=== PATIENT | female | born 1945 | race Caucasian/White ===

== ENCOUNTER → 2018-03-29 | Day surgery (SDC) | payer MEDICARE ==
[~2018-03-29] VITALS: Ht 175.2 cm; Wt 73.9 kg
[~2018-03-29] MED LIST: AMLODIPINE BESYL5 MG PO; ATORVASTATIN CA40 M1 PO; BENICAR40 MG PO; FLECAINIDE ACE100 M1 PO; HYDROCHLOROTHIA25 M1 PO; METOPROLOL SUCC50 M1 PO; VALSARTAN160 MG PO
[2018-03-29 07:20] VITALS: BP 123/68
[2018-03-29 09:23] VITALS: BP 143/63
[2018-03-29 09:32] VITALS: BP 127/67
[2018-03-29 09:51] VITALS: BP 131/78
== END | disposition home or self-care (01) ==
LOC: SDC 03-25 08:45
DX: L57.0 Actinic keratosis (principal); L98.499 Non-pressure chronic ulcer of skin of other sites with unspecified severity; L90.5 Scar conditions and fibrosis of skin; C44.612 Basal cell carcinoma of skin of right upper limb, including shoulder; I10 Essential (primary) hypertension; I48.91 Unspecified atrial fibrillation; Z98.890 Other specified postprocedural states; Z79.899 Other long term (current) drug therapy

== ENCOUNTER → 2024-01-31 | Outpatient (CLI) | payer MEDICARE | END | disposition home or self-care (01) | LOC: RESCLI 13:01 | PROVIDERS: ATTEND Student in an Organized Health Care Education/Training Program | DX: I48.91 Unspecified atrial fibrillation (principal); I10 Essential (primary) hypertension; E55.9 Vitamin D deficiency, unspecified; E78.5 Hyperlipidemia, unspecified; E03.9 Hypothyroidism, unspecified; Z98.890 Other specified postprocedural states; Z79.899 Other long term (current) drug therapy; Z79.01 Long term (current) use of anticoagulants ==